=== PATIENT | female | born 1975 ===

== ENCOUNTER 2018-06-17 12:46 | Emergency (ER) | payer OTHER ==
[2018-06-17 12:47] VITALS: BMI 39.0
[2018-06-17 12:56] VITALS: BP 117/74; PULSE 78; RESP 18; TEMP 98.4; O2SAT 99
--- NOTE | 2018-06-17 17:33 | C.PDOC ---
History Of Present Illness 42 year old female presents to the emergency department with complaints of left great toe pain for the last four days. Patient states that she had an ingrown toenail which she cut. Patient states that she didn't take anything for the pain. Chief Complaint (Nursing): Lower Extremity Problem/Injury History Per: Patient History/Exam Limitations: no limitations Onset/Duration Of Symptoms: Days (4) Current Symptoms Are (Timing): Still Present - Ankle/Foot Description Of Injury: Other (ingrown toenail) Past Medical History Reviewed: Historical Data, Nursing Documentation, Vital Signs Vital Signs: Last Vital Signs Temp 98.4 F 06/17/18 12:54 Pulse 78 06/17/18 12:54 Resp 18 06/17/18 12:54 BP 117/74 06/17/18 12:54 Pulse Ox 99 06/17/18 17:34 - Medical History PMH: Asthma, Diabetes Denies: HTN Surgical History: Cholecystectomy - [facility] Procedures INJECT/INFUSE NEC (09/01/14) NAIL REMOVAL (03/24/15) Family History: States: Diabetes - Social History Hx Alcohol Use: No Hx Substance Use: No - Immunization History Hx Tetanus Toxoid Vaccination: No Hx Influenza Vaccination: No Hx Pneumococcal Vaccination: No Review Of Systems Except As Marked, All Systems Reviewed And Found Negative. Musculoskeletal: Positive for: Foot Pain (ingrown left great toenail) Neurological: Negative for: Weakness, Numbness Physical Exam - Physical Exam Appears: Non-toxic, No Acute Distress Skin: Warm, Dry, Other (part of the left great toenail has been removed, slight fluctuance around the area.) Head: Atraumatic, Normacephalic Eye(s): bilateral: Normal Inspection Neck: Normal, Supple Chest: Symmetrical, No Tenderness Extremity: Normal ROM, Tenderness (tenderness to palpation at the distal aspect of the left great toe. ) Pulses: Left Dorsalis Pedis: Normal, Right Dorsalis Pedis: Normal Neurological/Psych: Oriented x3, Normal Speech, Normal Cognition ED Course And Treatment O2 Sat by Pulse Oximetry: 99 (RA) Pulse Ox Interpretation: Normal Progress Note: Plan: Motrin 600mg PO Disposition - Disposition Referrals: Rachna Bello DPM [Staff Provider] - Disposition: HOME/ ROUTINE Disposition Time: 13:45 Condition: GOOD Additional Instructions: DANICA ZAVALA, thank you for letting us take care of you today. Your provider was Matt Gonzales DO and you were treated for LT TOE PAIN. The emergency medical care you received today was directed at your acute symptoms. If you were prescribed any medication, please fill it and take as directed. It may take several days for your symptoms to resolve. Return to the Emergency Department if your symptoms worsen, do not improve, or if you have any other problems. Please contact your doctor or call one of the physicians/clinics you have been referred to that are listed on the Patient Visit Information form that is included in your discharge packet. Bring any paperwork you were given at discharge with you along with any medications you are taking to your follow up visit. Our treatment cannot replace ongoing medical care by a primary care provider outside of the emergency department. Thank you for allowing the [facility] team to be part of your care today. Follow up with the hand trucker tomorrow afternoon for re-evaluation and further management. DANICA Y ZAVALA, garfield por dejarnos atenderlo laurie. [place] proveedor fue Matt Gonzales DO y usted recibi tratamiento para LT TOE DOLOR. La atencin mdica de emergencia que recibi hoy estaba dirigida a alley sntomas agudos. Si le prescribieron algn medicamento, llnelo y tome segn las indicaciones. Alley s ntomas pueden tardar varios campos en resolverse. Regrese al Departamento de Emergencia si alley sntomas empeoran, no mejoran o si tiene algn otro problema. Comunquese con [place] mdico o llame a chely de los mdicos / clnicas a los que barfield sido referido que figura en el formulario de Informacin de visita del paciente que se incluye en [place] paquete de mercy. Traiga todos los documentos que recibi al momento del mercy junto con los medicamentos que est tomando en [place] visita de seguimiento. Nuestro tratamiento no puede reemplazar la atencin mdica en curso por un proveedor de atencin primaria fuera del departamento de emergencia. Garfield por permitir que el equipo de [facility] sea parte de [place] cuidado hoy. Elva un seguimiento con el podiatra maana por la tarde para dejan reevaluacin y dejan mayor administracin. Prescriptions: Cephalexin [cephalexin] 500 mg PO TID #15 cap Ibuprofen [Motrin] 600 mg PO Q6 PRN #20 tab PRN Reason: Pain, Moderate (4-7) Instructions: Ingrown Toenail (DC) Forms: Gen Discharge Inst Montenegrin, [facility] (Montenegrin) Print Language: UKRAINIAN - Clinical Impression Clinical Impression: Ingrown nail of great toe of left foot - Scribe Statement The provider has reviewed the documentation as recorded by the Scribe (Brooks Sterling) Provider Attestation: All medical record entries made by the Scribe were at my direction and personally dictated by me. I have reviewed the chart and agree that the record accurately reflects my personal performance of the history, physical exam, medical decision making, and the department course for this patient. I have also personally directed, reviewed, and agree with the discharge instructions and disposition.
== END 2018-06-17 14:01 | disposition home or self-care (01) ==
LOC: C.ER 12:46
DX: L60.0 Ingrowing nail (principal)

== ENCOUNTER 2018-08-06 18:52 | Emergency (ER) | payer OTHER ==
[2018-08-06 18:53] VITALS: BMI 39.0
[2018-08-06] MEDS ORDERED: Sodium Chloride 0.9% 1,000 ML IV ONE (19:21)
--- NOTE | 2018-08-06 19:21 | C.PDOC ---
History Of Present Illness 42 year old female presents to the ED for evaluation of right upper quadrant pain for 4 days. Patient rates the pain 4/10, describes the pain as stabbing, and notes some vomiting. Denies fever, chills, trauma, injuries, and any other associated symptoms. Time Seen by Provider: 08/06/18 19:20 Chief Complaint (Nursing): Abdominal Pain History Per: Patient History/Exam Limitations: no limitations Onset/Duration Of Symptoms: Days Current Symptoms Are (Timing): Still Present Pain Scale Rating Of: 4 Quality Of Discomfort: Other (stabbing.) Past Medical History Reviewed: Historical Data, Nursing Documentation, Vital Signs Vital Signs: Last Vital Signs Temp 98.7 F 08/06/18 18:58 Pulse 76 08/06/18 18:58 Resp 20 08/06/18 18:58 BP 126/82 08/06/18 18:58 Pulse Ox 100 08/06/18 18:58 - Medical History PMH: Asthma, Diabetes Denies: HTN Surgical History: Cholecystectomy - [facility] Procedures INJECT/INFUSE NEC (09/01/14) NAIL REMOVAL (03/24/15) Family History: States: Diabetes - Social History Hx Alcohol Use: No Hx Substance Use: No - Immunization History Hx Tetanus Toxoid Vaccination: No Hx Influenza Vaccination: No Hx Pneumococcal Vaccination: No Review Of Systems Constitutional: Positive for: Other ((-) trauma. (-) injuries. ). Negative for: Fever, Chills Gastrointestinal: Positive for: Vomiting, Abdominal Pain (right upper quadrant pain. ) Physical Exam - Physical Exam Appears: Non-toxic Skin: Warm, Dry Head: Atraumatic, Normacephalic Eye(s): bilateral: Normal Inspection Oral Mucosa: Moist Neck: Normal ROM, Trachea Midline, Supple Chest: Symmetrical Cardiovascular: Rhythm Regular Respiratory: Normal Breath Sounds, No Rales, No Rhonchi, No Wheezing Gastrointestinal/Abdominal: Normal Exam, Soft, Tenderness (tenderness over the right upper quadrant. tenderness over the right flank area. ), No Distention, No Guarding, No Rebound, Other (morbidly obese.) Extremity: Bilateral: Normal Color And Temperature Pulses: Left Dorsalis Pedis: Normal (+2), Right Dorsalis Pedis: Normal (+2) Neurological/Psych: Oriented x3, Normal Speech Gait: Steady ED Course And Treatment - Laboratory Results Result Diagrams: 08/06/18 19:39 08/06/18 19:39 O2 Sat by Pulse Oximetry: 100 (RA) Pulse Ox Interpretation: Normal Progress Note: Plan: Blood sent. HCG Urine. Urinalysis. Pepcid. Toradol. Zofran. Reevaluation Time: 22:10 Reassessment Condition: Improved Medical Decision Making Medical Decision Making: Upon provider reevaluation patient is feeling better, is medically stable, and requires no further treatment in the ED at this time. Patient will be discharged home with Rx for naproxen. Counseling was provided and all questions were answered regarding diagnosis and need for follow up with the referred clinic. There is agreement to discharge plan. Return if symptoms persist or worsen. Disposition Counseled Patient/Family Regarding: Studies Performed, Diagnosis, Need For Fol lowup, Rx Given - Disposition Referrals: [facility] [Outside] [facility] [Outside] Disposition: HOME/ ROUTINE Disposition Time: 19:21 Condition: FAIR Additional Instructions: Please return if symptoms recur. May need an MRI for for herniated L5-S1 disc Prescriptions: Naproxen [Naprosyn] 1 tab PO BID PRN #25 tab PRN Reason: Pain Instructions: Acute Abdomen (Belly Pain), Adult (DC), Uterine Fibroids (DC), Herniated Disc (DC) Forms: [employer] (Bulgarian) - Clinical Impression Clinical Impression: Abdominal pain, Fibroid uterus, Herniation of intervertebral disc between L5 and S1 - Scribe Statement The provider has reviewed the documentation as recorded by the Scribe (Isabel bateman) Provider Attestation: All medical record entries made by the Scribe were at my direction and personally dictated by me. I have reviewed the chart and agree that the record accurately reflects my personal performance of the history, physical exam, medical decision making, and the department course for this patient. I have also personally directed, reviewed, and agree with the discharge instructions and disposition.
[2018-08-06 19:43] LABS: BASO # 0.1 K/uL (0.0-0.2); BASO % 0.5 % (0.0-2.0); EOS # 0.3 K/uL (0.0-0.7); EOS % 2.2 % (0.0-4.0); HEMOGLOBIN 11.8 g/dL (11.0-16.0); LYMPH # 2.9 K/uL (1.0-4.3); MEAN CELL VOLUME 77.8 fL (81.0-99.0); MEAN CORPUSCULAR HEMOGLOBIN 24.9 pg (27.0-31.0); MEAN PLATELET VOLUME 8.1 fL (7.2-11.7); MONO # 0.9 K/uL (0.0-0.8); MONO % 7.2 % (0.0-10.0); NEUT # 7.9 K/uL (1.8-7.0); NEUT % 66.1 % (50.0-75.0); RBC 4.72 Mil/uL (3.80-5.20); RED CELL DISTRIBUTION WIDTH 14.4 % (11.5-14.5)
[2018-08-06 19:49] LABS: HCG,QUALITATIVE URINE NEGATIVE (NEGATIVE)
[2018-08-06 19:51] LABS: SQUAMOUS EPITHIAL 9 /hpf (0-5); URINE BACTERIA RARE (<OCC); URINE BILIRUBIN NEGATIVE (NEGATIVE); URINE BLOOD 1+ (NEGATIVE); URINE CLARITY Hazy (Clear); URINE COLOR Yellow (YELLOW); URINE GLUCOSE (UA) NORMAL (Normal); URINE LEUKOCYTE ESTERASE TRACE Leu/uL (Negative); URINE PROTEIN NEGATIVE (NEGATIVE); URINE UROBILINOGEN NORMAL mg/dL (0.2-1.0)
[2018-08-06 19:54] LABS: INR 1.1; PROTHROMBIN TIME 12.3 SECONDS (9.7-12.2)
[2018-08-06 20:24] LABS: ALB/GLOB RATIO 1.4 (1.0-2.1); ALBUMIN 4.1 g/dL (3.5-5.0); ALT/SGPT 25 U/L (9-52); AST/SGOT 23 U/L (14-36); BLOOD UREA NITROGEN 6 mg/dL (7-17); CALCIUM 8.8 mg/dl (8.6-10.4); GFR NON-AFRICAN AMERICAN > 60; LIPASE 87 U/L (23-300)
[2018-08-06 22:32] VITALS: BP 101/65; PULSE 64; RESP 18; TEMP 98.6; O2SAT 98
--- NOTE | 2018-08-07 10:41 | CT ---
PROCEDURE: CT Abdomen and Pelvis without Oral or IV contrast. HISTORY: ruq, r flank pain, hx of cholecystectomy COMPARISON: None available. TECHNIQUE: Contiguous axial images of the abdomen and pelvis. No oral or IV contrast administered. Coronal and Sagittal reformats generated and reviewed. Radiation dose: Total exam DLP = 1104.51 mGy-cm. This CT exam was performed using one or more of the following dose reduction techniques: Automated exposure control, adjustment of the mA and/or kV according to patient size, and/or use of iterative reconstruction technique. FINDINGS: No visible consolidation, pleural effusion, or pneumothorax. LOWER THORAX: No visible consolidation, pleural effusion, or pneumothorax. LIVER: Unremarkable unenhanced appearance. GALLBLADDER AND BILE DUCTS: Cholecystectomy. PANCREAS: Unremarkable unenhanced appearance. SPLEEN: Unremarkable unenhanced appearance. ADRENALS: Unremarkable unenhanced appearance. KIDNEYS AND URETERS: No hydronephrosis or obstructing renal calculus. BLADDER: The urinary bladder appears unremarkable. REPRODUCTIVE: Enlarged lobulated uterus appears consistent with fibroids. APPENDIX: The appendix appears within normal limits of caliber. No secondary signs of acute appendicitis. BOWEL: The stomach is nondistended. Lack of oral contrast limits evaluation for bowel pathology. The bowel loops appear within normal limits of caliber without evidence of intestinal obstruction. PERITONEUM: No significant free fluid. No definite free air. LYMPH NODES: No bulky lymphadenopathy identified. VASCULATURE: No atherosclerotic calcification present. No aortic aneurysm. BONES: Degenerative changes including disc bulge at L5-S1. Posterior osteophyte formation also noted at this level. OTHER FINDINGS: None. IMPRESSION: Fibroid uterus. Additional findings as above. Preliminary impression was provided by [employer].
== END 2018-08-06 22:32 | disposition home or self-care (01) ==
LOC: C.ER 18:52
DX: R10.11 Right upper quadrant pain (principal); D25.9 Leiomyoma of uterus, unspecified; M51.27 Other intervertebral disc displacement, lumbosacral region; E11.9 Type 2 diabetes mellitus without complications
CPT/HCPCS: 74176; 80053; 81001; 83690; 84703; 85025; 85610; 85730; 96361; 96374; 96375; 99285; J1885; J2405; J7030